=== PATIENT | male | born 2000 | race Caucasian/White ===

== ENCOUNTER 2019-04-26 11:16 | Emergency (ER) | payer OTHER, SELFPAY ==
[2019-04-26 11:36] VITALS: BP 125/76; PULSE 98; RESP 18; TEMP 36.9; O2SAT 99; BMI 28.7
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
== END 2019-04-26 12:15 | disposition home or self-care (01) ==
LOC: ED 12:07
PROVIDERS: Emergency Provider Nurse Practitioner Family
DX: T22.012A Burn of unspecified degree of left forearm, initial encounter (principal)
CPT/HCPCS: 87070; 87205; 99283